=== PATIENT | female | born 1980 | race Caucasian/White ===

== ENCOUNTER 2021-01-17 18:03 | Emergency (ER) | payer BC ==
[2021-01-17 21:29] LABS: HEMOGLOBIN 12.8 gm/dl (12.3-15.3); RED BLOOD COUNT 4.39 M/UL (4.00-5.10)
[2021-01-17 21:50] LABS: BUN/CREATININE RATIO 10 (0-10)
[2021-01-17] MEDS ORDERED: HYDROCODON-ACE1 EAC4 PO (23:34)
[2021-01-17] MEDS ORDERED: OMNICEF 300 MG300 MG PO (23:36)
== END 2021-01-18 00:20 | disposition home or self-care (01) ==
LOC: ER1 18:03
PROVIDERS: Physician Assistant
DX: N39.0 Urinary tract infection, site not specified (principal); Z88.2 Allergy status to sulfonamides; Z79.899 Other long term (current) drug therapy
CPT/HCPCS: 80053; 81001; 83605; 84703; 85025; 87077; 87086; 87186; 96365; 96375; 99284; J0696; J2270; J2405

== ENCOUNTER → 2021-02-01 | Outpatient (CLI) | payer BC ==
[~2021-02-01] MED LIST: HYDROCODON-ACE1 EAC4 PO; OMNICEF 300 MG300 MG PO
== END ==
LOC: LAB 12:10
DX: N39.0 Urinary tract infection, site not specified (principal); B96.89 Other specified bacterial agents as the cause of diseases classified elsewhere
CPT/HCPCS: 87077; 87086; 87186

== ENCOUNTER 2022-03-10 20:04 | Emergency (ER) | payer BC | END 2022-03-10 22:07 | disposition home or self-care (01) | LOC: ER1 20:04 | DX: S27.818A Other injury of esophagus (thoracic part), initial encounter (principal); Z88.2 Allergy status to sulfonamides; X58.XXXA Exposure to other specified factors, initial encounter | CPT/HCPCS: 71046; 99284 ==

== ENCOUNTER 2022-04-01 15:46 | Emergency (ER) | payer BC ==
[2022-04-01 17:02] LABS: HEMOGLOBIN 13.8 gm/dl (12.3-15.3); RED BLOOD COUNT 4.74 M/UL (4.00-5.10)
[2022-04-01 17:34] LABS: BUN/CREATININE RATIO 11 (0-10)
== END 2022-04-01 18:36 | disposition home or self-care (01) ==
LOC: ER1 15:46
PROVIDERS: Physician Assistant
DX: R03.0 Elevated blood-pressure reading, without diagnosis of hypertension (principal)
CPT/HCPCS: 80053; 81001; 84703; 85025; 93005; 99284

== ENCOUNTER → 2022-05-25 | Outpatient (CLI) | payer BC | LOC: LAB 09:52 | DX: Z32.00 Encounter for pregnancy test, result unknown (principal) | CPT/HCPCS: 36415; 84702 ==